=== PATIENT | female | born 1980 | race Caucasian/White ===

== ENCOUNTER 2017-01-15 13:56 | Emergency (ER) | payer SELFPAY ==
[~2017-01-15] VITALS: Wt 77.3 kg
[2017-01-15] MEDS ORDERED: ONDANSETRON (ODT) 4 MG TAB ODT STA (14:29)
[2017-01-15] MEDS ORDERED: MECLIZINE 12.5 MG TAB PO ONE (14:30)
--- NOTE | 2017-01-15 14:43 | ERD ---
ER Documentation Chief Complaint Chief Complaint dizziness, nausea, body tingling. neg neuro def in triage. HPI 36-year-old female patient with a past medical history of hypertension presents to the ED complaining of dizziness that started 40 minutes ago. Patient reports that when she turns her head quickly, she gets up out of her seat, it worsens the dizziness. States that she is nauseous but denies any vomiting. Reports that she is slightly nervous and feels like she has body tingling. Denies any chest pain, shortness of breath, wheezing, abdominal pain, diarrhea, constipation, dysuria, urgency, frequency, headache, sinus pain, weakness. Patient reports that she feels a globus sensation. Patient's daughter states that she feels like patient is acting differently and is taking a while to answer questions. Denies any previous history or family history of stroke. ROS All systems reviewed and are negative except as per history of present illness. Allergies Allergies: Coded Allergies: No Known Allergy (Unverified , 01/15/17) PMhx/Soc Medical and Surgical Hx: pt denies Medical Hx, pt denies Surgical Hx Hx Alcohol Use: No Hx Substance Use: No Hx Tobacco Use: No Smoking Status: Never smoker Physical Exam Vitals Vital Signs Date Time Temp Pulse Resp B/P Pulse Ox O2 Delivery O2 Flow Rate FiO2 01/15/17 17:11 98.1 70 18 125/82 97 Room Air 01/15/17 13:57 98.1 82 20 155/95 97 Physical Exam Const: Vky-[id number]-[id number], well-nourished. In no acute distress. Head: Atraumatic, normocephalic Eyes: Normal Conjunctiva without injection. No purulent discharge. PERRLA. EOMI ENT: Normal external ear. Ear canal without erythema. Tympanic membrane pearly collins without effusion or bulging. Nasal canal clear with normal turbinates. Moist oropharynx without tonsillar exudates. Non-erythematous pharynx. Uvula midline. No drooling. No trismus. Neck: No cervical midline tenderness. Full range of motion. No meningismus. No cervical lymphadenopathy. No JVD. Resp: Clear to auscultation bilaterally. No wheezing, rhonchi, rales, or crackles. No accessory muscle use. No retractions. Cardio: Regular rate and rhythm. No murmurs, rubs or gallops. Abd: Soft, non tender, non distended. Normal bowel sounds. No palpable masses. No rebound tenderness. No guarding. Negative McBurney's Point. Negative Osorio's Sign. Skin: Normal skin turgor. No petechiae or rashes Back: No midline tenderness. No CVA tenderness. Ext: No cyanosis, or edema. Distal pulses intact bilaterally. Neur: Awake and alert. Normal gait. Normal coordination. Cranial Nerves II- VII intact. Normal finger to nose. Muscle strength 5/5. Sensation intact. Psych: Normal Mood and Affect Result Diagram: 01/15/17 1506 01/15/17 1506 Results 24 hrs Laboratory Tests Test 01/15/17 14:56 01/15/17 15:06 01/15/17 15:18 Bedside Glucose 138mg/dL White Blood Count 8.010^3/ul Red Blood Count 4.7510^6/ul Hemoglobin 13.5g/dl Hematocrit 40.6% Mean Corpuscular Volume 85.5fl Mean Corpuscular Hemoglobin 28.4pg Mean Corpuscular Hemoglobin Concent 33.3g/dl Red Cell Distribution Width 12.3% Platelet Count 83255^3/UL Mean Platelet Volume 11.2fl Neutrophils % 64.1% Lymphocytes % 28.6% Monocytes % 5.1% Eosinophils % 1.6% Basophils % 0.3% Nucleated Red Blood Cells % 0.0/100WBC Neutrophils # 5.110^3/ul Lymphocytes # 2.310^3/ul Monocytes # 0.410^3/ul Eosinophils # 0.110^3/ul Basophils # 0.010^3/ul Nucleated Red Blood Cells # 0.010^3/ul Sodium Level 142mmol/L Potassium Level 4.1mmol/L Chloride Level 105mmol/L Carbon Dioxide Level 29mmol/L Anion Gap 12 Blood Urea Nitrogen 14mg/dl Creatinine 0.55mg/dl Glucose Level 108mg/dl Calcium Level 9.7mg/dl Total Bilirubin 0.3mg/dl Direct Bilirubin 0.00mg/dl Indirect Bilirubin 0.3mg/dl Aspartate Amino Transf (AST/SGOT) 30IU/L Alanine Aminotransferase (ALT/SGPT) 49IU/L Alkaline Phosphatase 61IU/L Total Protein 8.4g/dl Albumin 4.5g/dl Globulin 3.90g/dl Albumin/Globulin Ratio 1.15 Urine Color YELLOW Urine Clarity SLIGHTLY CLOUDY Urine pH 5.0 Urine Specific [place] 1.011 Urine Ketones NEGATIVEmg/dL Urine Nitrite NEGATIVEmg/dL Urine Bilirubin NEGATIVEmg/dL Urine Urobilinogen NEGATIVEmg/dL Urine Leukocyte Esterase TRACELeu/ul Urine Microscopic RBC 2/HPF Urine Microscopic WBC 3/HPF Urine Squamous Epithelial Cells FEW/HPF Urine Bacteria FEW/HPF Urine Hemoglobin 1+mg/dL Urine Glucose NEGATIVEmg/dL Urine Total Protein NEGATIVEmg/dl Current Medications Medications (Trade) Dose Ordered Sig/Evette Route PRN Reason Start Time Stop Time Status Last Admin Dose Admin Meclizine HCl (Antivert) 25 mg ONCE ONCE PO 01/15/17 14:30 01/15/17 14:32 DC 01/15/17 14:45 Ondansetron HCl 4 mg 4 mg ONCE STAT ODT 01/15/17 14:29 01/15/17 14:32 DC 01/15/17 14:45 Sodium Chloride (NS) 1,000 ml @ 1,000 mls/hr Q1H STAT IV 01/15/17 15:06 01/15/17 16:05 DC 01/15/17 15:06 Procedures/MDM 36-year-old female patient with a past medical history of hypertension presents to the ED complaining of dizziness that started 40 minutes ago. Patient is afebrile and nontoxic-appearing. She has a blood pressure of 155/95. Patient' s blood pressure was elevated (>120/80) but appears stable without evidence of hypertension emergency or urgency. The patient was counseled about the risks of hypertension and urged to pursue outpatient monitoring and therapy within a week with their primary care physician. Patient was given Meclizine, Zofran here in the ED treatment of her symptoms. An EKG, Accu-Chek, urine was ordered to further evaluate patient. Patient is neurologically intact. EKG reviewed and interpreted by Dr. Meza Rate/Rhythm: [83 bpm, Normal Sinus Rhythm] No ectopy, no ST elevations, normal axis. QRS, ST, T-waves: [No changes consistent w/ acute ischemia] Impression: [No evidence of ischemia or arrhythmia] CBC: No leukocytosis. No anemia. CMP: No e/o alkalosis, acidosis, DKA, renal or liver disease Urine: No leukocyte esterase, nitrite, hematuria. PROCEDURE: CT HEAD NON CONTRAST CLINICAL INDICATION: Dizziness TECHNIQUE: Utilizing the multi-slice spiral CT scanner, multiple images were obtained through the brain without intravenous contrast. Automatic exposure control was utilized as dose lowering technique One of more of the following dose reduction techniques were utilized: - automatic exposure control.-adjustment of the mA and/or kV according to patient size. -Use of iterative reconstruction technique. Radiation Dose: CTDI is 44.95 mGy. DLP is 720.23 mGy-cm. COMPARISON: None FINDINGS: Ventricular system and brain parenchyma appear unremarkable. No acute intracranial bleed, midline shift, acute extra-axial collections noted. No abnormal calcifications seen. The globe, retrobulbar area appears unremarkable. Bony calvarium and overlying soft tissues appear unremarkable. IMPRESSION: NO ACUTE INTRACRANIAL BLEED NOTED. Differentials include anxiety vs. benign positional vertigo. Low suspicion for acute myocardial infarction, pneumothorax, pneumonia, cardiac tamponade, Larry- Parkinson-White Syndrome, Brugada Syndrome, pulmonary embolism, AAA, aortic dissection, thoracic aortic dissection, endocarditis, pericarditis, cocaine- related ischemia, cavernous sinus thrombosis, Boerhaave's syndrome, cardiac dysrhythmias,meningitis, intracranial bleed, seizure, stroke, TIA or other emergent conditions. Follow up with primary care physician in 1-2 days. Instructed patient to return to the ED sooner for any worsening symptoms. Patient's questions were answered. Patient understood and agreed with discharge plan. Patient discharged stable. Departure Diagnosis: Primary Impression: Dizziness Condition: Stable Patient Instructions: Dizziness, Unk Cause Referrals: [facility] YOU HAVE RECEIVED A MEDICAL SCREENING EXAM AND THE RESULTS INDICATE THAT YOU DO NOT HAVE A CONDITION THAT REQUIRES URGENT TREATMENT IN THE EMERGENCY DEPARTMENT. FURTHER EVALUATION AND TREATMENT OF YOUR CONDITION CAN WAIT UNTIL YOU ARE SEEN IN YOUR DOCTORS OFFICE WITHIN THE NEXT 1-2 DAYS. IT IS YOUR RESPONSIBILITY TO MAKE AN APPOINTMENT FOR FOLOW-UP CARE. IF YOU HAVE A PRIMARY DOCTOR --you should call your primary doctor and schedule an appointment IF YOU DO NOT HAVE A PRIMARY DOCTOR YOU CAN CALL OUR PHYSICIAN REFERRAL HOTLINE AT IF YOU CAN NOT AFFORD TO SEE A PHYSICIAN YOU CAN CHOSE FROM THE FOLLOWING [facility] [address] [facility]. [facility] [address] [facility] [facility] [address] [facility]. [facility] [address] [facility]. [facility] [address] [facility]. [facility]. [address] [facility]. [facility] YOU HAVE RECEIVED A MEDICAL SCREENING EXAM AND THE RESULTS INDICATE THAT YOU DO NOT HAVE A CONDITION THAT REQUIRES URGENT TREATMENT IN THE EMERGENCY DEPARTMENT. FURTHER EVALUATION AND TREATMENT OF YOUR CONDITION CAN WAIT UNTIL YOU ARE SEEN IN YOUR DOCTORS OFFICE WITHIN THE NEXT 1-2 DAYS. IT IS YOUR RESPONSIBILITY TO MAKE AN APPOINTMENT FOR FOLOW-UP CARE. IF YOU HAVE A PRIMARY DOCTOR --you should call your primary doctor and schedule and appointment IF YOU DO NOT HAVE A PRIMARY DOCTOR YOU CAN CALL OUR PHYSICIAN REFERRAL HOTLINE AT . IF YOU CAN NOT AFFORD TO SEE A PHYSICIAN YOU CAN CHOSE FROM THE FOLLOWING FORMERLY [facility], [facility]1983 INSTITUTIONS: [facility] [address] [place] [address] [facility] [address] [place] [address] [facility] + [facility] [address] [place] [address] [facility] URGENT CARE/SPECIALTIES Additional Instructions: Visite a smith mingo aguila para un EXAMEN.Regrese a estas instalaciones si no se mejora jodi esperbamos o jodi le dijimos. NELLIE ALBERTS PA-C Jan 15, 2017 14:43
[2017-01-15] MEDS ORDERED: SOD CHLORIDE 0.9% 1,000 ML IV STA (15:06)
--- NOTE | 2017-01-15 15:35 | RADRPT ---
PROCEDURE: CT HEAD NON CONTRAST CLINICAL INDICATION: Dizziness TECHNIQUE: Utilizing the multi-slice spiral CT scanner, multiple images were obtained through the b rain without intravenous contrast. Automatic exposure control was utilized as dose lowering techniqu e One of more of the following dose reduction techniques were utilized: -automatic exposure control.-a djustment of the mA and/or kV according to patient size. -Use of iterative reconstruction technique. Radiation Dose: CTDI is 44.95 mGy. DLP is 720.23 mGy-cm. COMPARISON: None FINDINGS: Ventricular system and brain parenchyma appear unremarkable. No acute intracranial bleed, midline sh ift, acute extra-axial collections noted. No abnormal calcifications seen. The globe, retrobulbar ar ea appears unremarkable. Bony calvarium and overlying soft tissues appear unremarkable. IMPRESSION: NO ACUTE INTRACRANIAL BLEED NOTED. RPTAT: AAOO Physician Lexi Date Time Electronically viewed and signed by Physician Lexi on 01/15/2017 15:35 MB/
[2017-01-15 15:43] LABS: ADD UMIC YES; UR ASCORBIC ACID NEGATIVE (NEGATIVE); UR BACTERIA FEW /HPF (NONE SEEN); UR BILIRUBIN (Dip) NEGATIVE (NEGATIVE); UR BLOOD (Dip) 1+ mg/dL (NEGATIVE); UR CLARITY SLIGHTLY CLOUDY (CLEAR); UR COLOR YELLOW (YELLOW); UR GLUCOSE (Dip) NEGATIVE (NEGATIVE); UR KETONES (Dip) NEGATIVE (NEGATIVE); UR LEUKOCYTE ESTERASE (Dip) TRACE Leu/ul (NEGATIVE); UR NITRITE (Dip) NEGATIVE (NEGATIVE); UR RBC 2 /HPF (0-5); UR SPECIFIC GRAVITY (Dip) 1.011 (1.003-1.030); UR SQUAMOUS EPITHELIAL CELL FEW /HPF (FEW); UR TOTAL PROTEIN (Dip) NEGATIVE (NEGATIVE); UR UROBILINOGEN (Dip) NEGATIVE (NEGATIVE)
[2017-01-15 16:06] LABS: BASOPHILS % 0.3 % (0.0-2.0); EOSINOPHILS # 0.1 10^3/ul (0.0-0.5); EOSINOPHILS % 1.6 % (0.0-7.0); HEMATOCRIT 40.6 % (37.0-47.0); HEMOGLOBIN 13.5 g/dl (12.0-16.0); LYMPHOCYTES # 2.3 10^3/ul (0.8-2.9); LYMPHOCYTES % 28.6 % (15.0-51.0); MEAN CORPUSCULAR HEMOGLOBIN 28.4 pg (29.0-33.0); MEAN CORPUSCULAR HGB CONC 33.3 g/dl (32.0-37.0); MEAN CORPUSCULAR VOLUME 85.5 fl (82.0-101.0); MEAN PLATELET VOLUME 11.2 fl (7.4-10.4); MONOCYTE # 0.4 10^3/ul (0.3-0.9); MONOCYTES % 5.1 % (0.0-11.0); NEUTROPHIL # 5.1 10^3/ul (1.6-7.5); NEUTROPHILS % 64.1 % (39.0-77.0); PLATELET COUNT 206 10^3/UL (140-415); RED BLOOD COUNT 4.75 10^6/ul (4.20-5.40); RED CELL DISTRIBUTION WIDTH 12.3 % (11.5-14.5)
[2017-01-15 16:28] LABS: ALBUMIN 4.5 g/dl (3.3-4.9); ALBUMIN/GLOBULIN RATIO 1.15; BILIRUBIN,INDIRECT 0.3 mg/dl (0-1.1); BILIRUBIN,TOTAL 0.3 mg/dl (0.2-1.3); CALCIUM 9.7 mg/dl (8.4-10.2); CREATININE 0.55 mg/dl (0.44-1.00); POTASSIUM 4.1 mmol/L (3.5-5.1); TOTAL PROTEIN 8.4 g/dl (6.1-8.1)
[2017-01-15 17:11] VITALS: BP 125/82; PULSE 70; RESP 18; TEMP 98.1
== END 2017-01-15 17:11 | disposition home or self-care (01) ==
LOC: FTE 13:56
DX: R42 Dizziness and giddiness (principal)
CPT/HCPCS: 70450; 80053; 81001; 82962; 85025; 93005; J7030